=== PATIENT | male | born 1955 | race African-American/Black ===

== ENCOUNTER 2018-07-22 14:33 | Emergency (ER) | payer MEDICARE, OTHER ==
[~2018-07-22] VITALS: Ht 177.8 cm; Wt 80.0 kg
[~2018-07-22 14:33] MED LIST: ATEN-187 PO; DIPH25TA51 PO; ISOS10TA16 PO; LISI5TAB PO
[2018-07-22 15:12] VITALS: BP 135/91
== END 2018-07-22 15:17 | disposition home or self-care (01) ==
LOC: EMS 14:36
DX: H65.01 Acute serous otitis media, right ear (principal); I25.10 Atherosclerotic heart disease of native coronary artery without angina pectoris; I10 Essential (primary) hypertension; I25.2 Old myocardial infarction; F41.9 Anxiety disorder, unspecified; F12.90 Cannabis use, unspecified, uncomplicated; Z79.899 Other long term (current) drug therapy
CPT/HCPCS: 99283

== ENCOUNTER 2019-05-17 14:23 | Emergency (ER) | payer MEDICARE, OTHER ==
[~2019-05-17] VITALS: Ht 177.8 cm; Wt 80.0 kg
[2019-05-17] MEDS ORDERED: ATEN25TA PO (14:43)
[2019-05-17 15:54] VITALS: BP 147/50
== END 2019-05-17 16:04 | disposition home or self-care (01) ==
LOC: EMS 14:26
DX: L23.9 Allergic contact dermatitis, unspecified cause (principal); F41.9 Anxiety disorder, unspecified; I25.10 Atherosclerotic heart disease of native coronary artery without angina pectoris; I10 Essential (primary) hypertension; I25.2 Old myocardial infarction; F12.90 Cannabis use, unspecified, uncomplicated

== ENCOUNTER 2019-07-17 10:32 | Emergency (ER) | payer MEDICARE, OTHER ==
[~2019-07-17] VITALS: Ht 177.8 cm; Wt 77.3 kg
[~2019-07-17 10:32] MED LIST changes: -ATEN-187 PO; +ATEN25TA PO; -LISI5TAB PO
[2019-07-17] MEDS ORDERED: FAMO20 PO (10:43)
[2019-07-17] MEDS ORDERED: CETI10TA59 PO (10:43)
[2019-07-17] MEDS ORDERED: LORA10TA7 PO (10:43)
[2019-07-17 11:52] VITALS: BP 121/80
== END 2019-07-17 11:55 | disposition home or self-care (01) ==
LOC: EMS 10:33
DX: S20.469A Insect bite (nonvenomous) of unspecified back wall of thorax, initial encounter (principal); I10 Essential (primary) hypertension; F12.90 Cannabis use, unspecified, uncomplicated; Z91.012 Allergy to eggs; Z91.011 Allergy to milk products; Z20.7 Contact with and (suspected) exposure to pediculosis, acariasis and other infestations; W57.XXXA Bitten or stung by nonvenomous insect and other nonvenomous arthropods, initial encounter; Y93.89 Activity, other specified; Y92.89 Other specified places as the place of occurrence of the external cause; Y99.8 Other external cause status

== ENCOUNTER 2021-10-29 18:10 | Emergency (ER) | payer MEDICARE, OTHER ==
[~2021-10-29] VITALS: Ht 177.8 cm; Wt 76.4 kg
[~2021-10-29 18:10] MED LIST changes: +ATEN-73 PO; -ATEN25TA PO; +CETI-450 PO; -DIPH25TA51 PO; +FAMO20 PO; +LORA10TA7 PO
[2021-10-29] MEDS ORDERED: LIDOCAINE 1% 10 ML VIAL SQ ONE (19:30)
[2021-10-29] MEDS ORDERED: POVIDONE-IODINE 10% 15 ML SOLUTION UD TP ONE (19:30)
[2021-10-29 20:12] VITALS: BP 135/78
== END 2021-10-29 20:33 | disposition home or self-care (01) ==
LOC: EMS 18:15
DX: L02.212 Cutaneous abscess of back [any part, except buttock and flank] (principal); R20.2 Paresthesia of skin; I10 Essential (primary) hypertension; F12.90 Cannabis use, unspecified, uncomplicated; Z79.899 Other long term (current) drug therapy; Z91.012 Allergy to eggs; Z91.011 Allergy to milk products
CPT/HCPCS: 10060; 99282; J3490

== ENCOUNTER → 2024-04-13 | Emergency (ER) | payer MEDICARE, MEDICAID ==
[~2024-04-13] VITALS: Ht 177.8 cm; Wt 73.6 kg
[~2024-04-13] MED LIST changes: +SILD20TA14 PO
[2024-04-13 16:03] VITALS: BP 121/72; PULSE 61; RESP 18; TEMP 98
[2024-04-13 16:31] LABS: BASOPHILS % (AUTO) 0.8 % (0.0-2.0); EOSINOPHILS % (AUTO) 5.2 % (1.0-6.0); HEMATOCRIT 41.1 % (41-53); HEMOGLOBIN 13.7 g/dL (13.5-17.5); MEAN CORPUSCULAR HEMOGLOBIN 32.1 pg (26.0-34.0); MEAN CORPUSCULAR HGB CONC 33.4 G/dL (31.0-37.0); MEAN CORPUSCULAR VOLUME 96 fL (80-100); MONOCYTES # (AUTO) 0.4 K/uL (0.1-1.0); MONOCYTES % (AUTO) 5.4 % (2.0-9.0); NEUTROPHILS # (AUTO) 5.1 K/uL (1.8-7.7); NEUTROPHILS % (AUTO) 63.6 % (40.0-70.0); PLATELET COUNT (AUTO) 345 K/uL (150-450); RED BLOOD CELL COUNT(AUTO) 4.27 MIL/uL (4.50-5.90); RED CELL DISTRIBUTION WIDTH 14.1 % (11.5-14.5)
[2024-04-13 16:35] LABS: ANION GAP 9 mmol/L (8-16); CALCIUM, TOTAL 9.5 mg/dL (8.8-10.5); CARBON DIOXIDE 27 mmol/L (22-29); CHLORIDE 103 mmol/L (98-107); CREATININE 1.05 mg/dL (0.60-1.30); GLOMERULAR FILTR. RATE CALC > 60 mL/min (>60); GLUCOSE,RANDOM 76 mg/dL (70-110); POTASSIUM 3.5 mmol/L (3.5-5.1); SODIUM SERUM 139 mmol/L (136-145); UREA NITROGEN, BLOOD 14 mg/dL (7-18)
[2024-04-13 16:40] LABS: ALANINE AMINOTRANSFERASE 31 U/L (12-78); ALBUMIN 3.9 g/dL (3.4-5.0); ALKALINE PHOSPHATASE 46 U/L (46-116); ASPARTATE AMINOTRANSFERASE 31 U/L (15-37); BILIRUBIN,TOTAL 0.4 mg/dL (0.1-1.0)
[2024-04-13 16:42] LABS: TROPONIN I-HIGH SENSITIVITY 7 ng/L (<76)
== END | disposition home or self-care (01) ==
LOC: EMS 16:01
DX: R07.89 Other chest pain (principal); I10 Essential (primary) hypertension; F12.90 Cannabis use, unspecified, uncomplicated; Z91.011 Allergy to milk products; Z91.012 Allergy to eggs
CPT/HCPCS: 71045; 80053; 84484; 85025; 93005; 99283; 36415-L1; 36415-TC

== ENCOUNTER 2024-06-01 18:38 | Emergency (ER) | payer MEDICARE, MEDICAID ==
[~2024-06-01] VITALS: Ht 177.8 cm; Wt 77.3 kg
[~2024-06-01 18:38] MED LIST changes: -CETI-450 PO; -FAMO20 PO; -ISOS10TA16 PO; -LORA10TA7 PO
[2024-06-01 18:49] VITALS: BP 125/73; PULSE 81; RESP 20; TEMP 98.9
[2024-06-01] MEDS ORDERED: CEPH-558 PO (22:52)
[2024-06-01] MEDS ORDERED: PERCT PO (22:52)
[2024-06-01] MEDS: CEPHALEXIN MONOHYDRATE 500 MG CAPSULE PO ONE (23:09)
[2024-06-01] MEDS: OxyCODONE HCL/ACETAMINOPHEN 5-325 MG TABLET PO ONE (23:09)
== END 2024-06-01 23:22 | disposition home or self-care (01) ==
LOC: EMS 18:43
DX: S92.401A Displaced unspecified fracture of right great toe, initial encounter for closed fracture (principal); I10 Essential (primary) hypertension; I25.2 Old myocardial infarction; F12.90 Cannabis use, unspecified, uncomplicated; Z91.012 Allergy to eggs; Z91.011 Allergy to milk products; X58.XXXA Exposure to other specified factors, initial encounter; Y93.89 Activity, other specified; Y92.89 Other specified places as the place of occurrence of the external cause; Y99.8 Other external cause status
CPT/HCPCS: 99283